=== PATIENT | male | born 1995 | race Caucasian/White ===

== ENCOUNTER 2017-01-27 10:45 | Emergency (ER) | payer BC ==
[2017-01-27 11:17] VITALS: BP 127/55
[2017-01-27] MEDS ORDERED: Lidocaine 2% PF * 5 ML VIAL ONE (11:23)
--- NOTE | 2017-01-27 11:56 | UC ---
Skin Complaint HPI - HPI Summary HPI Summary: 22 year old male with finger laceration . "I cut my hand last night." Patient stated he was cutting something with his folding knife, his knife slipped, and he cut his left hand 01/26/17 2100. 3cm x 0.3cm laceration on the palmar aspect over MCP. No active bleeding. Patient cleansed wound with H2O2, sprayed on Neosporin, applied guaze, applied an MARINE and has not removed it since. Patient stated he went to [facility] ED but the parking lot was too full for him, then he went to [facility] ER where he was given a wait time of 3-4 hours and did not stay. Patient is not on blood thinners and does not have any known bleeding disorders. Patient is right handed. Patient is a anesthesiologist physician. PCP Migdalia.Brand new knife just out of the box. No fever or redness at the joint . Can move fingers with FROM and no loss of sensation or strength [ End ] - History of Current Complaint Chief Complaint: UCLaceration Time Seen by Provider: 01/27/17 11:18 Stated Complaint: LEFT HAND LACERATION Hx Obtained From: Patient Onset/Duration: Sudden Onset Aggravating Factor(s): Nothing Alleviating Factor(s): Nothing Associated Signs & Symptoms: Positive: Negative - Allergy/Home Medications Allergies/Adverse Reactions: Allergies Allergy/AdvReac Type Severity Reaction Status Date / Time No Known Allergies Allergy Verified 01/27/17 11:12 Home Medications: Home Medications Ibuprofen TAB* [Advil TAB*] 600 mg PO Q6H PRN 01/27/17 [History Confirmed ] Neomycin/Polym/Bacit TOP OINT* [Neosporin TOP OINT TUBE*] 1 applic TOPICAL ONCE 01/27/17 [History Confirmed 01/27/17] Review of Systems Skin: Other - laceration Is Patient Immunocompromised?: No All Other Systems Reviewed And Are Negative: Yes PMH/Surg Hx/FS Hx/Imm Hx - Surgical History Surgical History: Yes Surgery Procedure, Year, and Place: Appendectomy - Family History Known Family History: Positive: None - Social History Occupation: Unemployed Lives: With Family Alcohol Use: None Substance Use Type: None Smoking Status (MU): Heavy Every Day Tobacco Smoker Type: Cigarettes Amount Used/How Often: 1/2 PPD Length of Time of Smoking/Using Tobacco: Since Age 14 Household Exposure Type: Cigarettes Cessation Counseling: Patient Advised to Stop - Immunization History Most Recent Influenza Vaccination: Not the 2016/2017 Season Most Recent Tetanus Shot: ~2016 Physical Exam Triage Information Reviewed: Yes Appearance: Well-Appearing, Well-Nourished Vital Signs: Initial Vital Signs Temp 98.7 F 01/27/17 11:08 Pulse 84 01/27/17 11:08 Resp 16 01/27/17 11:08 BP 127/55 01/27/17 11:08 Pulse Ox 98 01/27/17 11:08 Vital Signs Reviewed: Yes Eye Exam: Normal Neck: Positive: 1 Respiratory Exam: Normal Cardiovascular Exam: Normal Musculoskeletal Exam: Normal Neurological Exam: Normal Psychological Exam: Normal Skin Exam: Normal, Other - after using 1 mL of 2.0 lido without the area was thoroughly irrigated by nurse -- complete inspection after did not reveal and tendon laceration or visible. no FB present. FROM of the finger at all joints with normal strength and sensation Skin: Positive: Other - left index finer just proximal to the joint . linear and 2.5 cm. FROM. sensation intact. repaired. FROM of the joint. no dehiscence or bleeding. minimal bleeding during suturing. cap refill <3 sec. Laceration Repair - Laceration Repair 1 Description: Linear Laceration Size After Repair: Length (cm) - 2.5 Contamination/FB Removal: no FB, irrigated Type Injection: Local Anesthesia Used: 2.0% Lido - 2 cc overall Cleansing Completed Via Routine Prep: Yes Irrigation With Pressure Irrigation Device: Yes Closure Material: Sutures - 9 sutures Closure Method: Single Layer Suture Of: Skin Suture Type: Prolene - 4.0 size Course/Dx - Course Course Of Treatment: clean wound. irrigated wound. clean new knife. UTD with Tdap in the past 4 years. discussed at length S/S of septic joint. he is aware to go to ED if any concerns. agree with plan. 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
== END 2017-01-27 12:48 | disposition home or self-care (01) ==
LOC: UCCORT 10:45
DX: S61.211A Laceration without foreign body of left index finger without damage to nail, initial encounter (principal); F17.210 Nicotine dependence, cigarettes, uncomplicated; W26.0XXA Contact with knife, initial encounter; Y92.9 Unspecified place or not applicable
CPT/HCPCS: 12002; 99212; G0463